=== PATIENT | female | born 1990 | race Caucasian/White ===

== ENCOUNTER 2017-09-07 19:00 | Inpatient (IN) | payer OTHER, SELFPAY ==
[2017-09-07 19:24] VITALS: BMI 26.4
[2017-09-07] MEDS: Lactated Ringers 1,000 ML 50 ML IV (19:35)
[2017-09-07 20:02] LABS: Hematocrit 36.4 % (37-47); Hemoglobin 12.3 g/dl (12.0-15.0); Mean Corp Hgb Conc 33.8 g/gl (32-36); Mean Corpuscular Hgb 31.5 pg (27.0-32.0); Mean Corpuscular Volume 93.1 fL (81-99); Mean Platelet Vol. 10.5 fl (6.2-12.0); Platelet Count 228 K/mm3 (150-450); RBC Distribution Width SD 47.6 fl (35.1-43.9); Red Blood Count 3.91 M/mm3 (4.2-5.4); Scan Indicated on CBC? Y/N NO; White Blood Count 9.7 K/mm3 (4.4-11.0)
[2017-09-07] MEDS: 0.9% Normal Saline 100 ML IV.SOLN. INTRA-UTER (20:45)
--- NOTE | 2017-09-07 21:17 | PCM.HP.OB ---
- Problem List (1) Post-dates Status: Acute (2) Encounter for induction of labor Status: Acute (3) Abnormal finding on screen Status: Acute (4) Family history of congenital heart defect Status: Acute History Date of Admission: 09/07/17 Final ANGEL: 09/01/17 Final ANGEL Source: US <20 weeks Gestational age: 40 Weeks and 6 Days History of this : This is a 26 year-old, G [1], P [0], at 40 weeks 5 days gestational age by 1st trimester U/S. Presented to L&D for post dates induction of labor for cervical ripening. OB HX: Family history of congenital heart disease, positive sequential screen in with U/S adjusted risk to 1 in 300 for DS, anemia in on iron supplementation. Allergies No Known Allergies Allergy (Verified 09/07/17 19:25) Home Medications: Home Medications Ferrous Sulfate [Iron] 1 tab PO DAILY 09/07/17 Pnv 11-Iron Fum-Folic Acid-Om3 [Virt-Kirk Dha Softgel] 1 tab PO DAILY 09/07/17 Smoking Status: Never smoker Alcohol: None Number of Fetus(es): 1 Heart Tracin, moderate variability, accels, no decels Category 1 TOCO Analysis: Q3-5 minutes, moderate to palpation History Past Pregnancies: Past Pregnancies Delivery Date Name GA/Weeks Outcome Route Weight Infant Gender Labor Length Anesthesia Delivery Location Provider FOB Labs: Rubella immune O positive HBsAG negative HIV negative RPR negative GC/CT negative Urine tox negative GBS negative Sequential screen positive for DS. U/S adjusted risk for DS 1 in 300. Declined further testing. Review of Systems Constitutional: Denies: Chills, Fever, Weight Change HEENT: Denies: Head Aches, Sinus Congestion, Sinus Drainage Cardiovascular: Denies: Chest Pain, Palpitations Respiratory: Denies: Cough, Shortness of breath at rest, Sputum production Gastrointestinal: Denies: Abdominal Pain, Nausea, Vomiting Genitourinary: Denies: Dysuria Musculoskeletal: Denies: Joint Pain, Joint Tenderness Skin: Denies: Rash, Wounds Neurological: Denies: Numbness, Tingling, Focal weakness Psychiatric: Denies: Anxiety, Depression, Homicidal Ideations, Suicidal Ideations Physical Exam General: Alert, Oriented x3, No apparent distress HEENT: Atraumatic, Normocephalic Cardiovascular: Regular rate, Regular Rhythm, No murmurs Lungs: Clear to auscultation, No rhonchi, No wheeze Abdomen: Bowel Sounds Present, Gravid Extremities:: No edema Neurological: Deep Tendon Reflexes 2+/4 and Symmetrical Estimated gestational size: Appropriate for gestational size Presentation: Cephalic Cervix Dilation (cm): 2 - Ramos catheter placed without complications Station: -1 Effacement (%): 60 Assessment/Plan All Active Problems Post-dates (Acute) Encounter for induction of labor (Acute) Abnormal finding on screen (Acute) Family history of congenital heart defect (Acute) A:This is a 26 year-old, G [1], P [0], at 40 weeks 5days gestational age post dates induction of labor GBS negative Category 1 FHT P: 1) Admit for induction of labor 2) IV saline lock 3) Ramos bulb for cervical ripening. Will start pitocin when out. 4) Planning epidural for pain management. 5) notified of patient in labor, collaborating physician. 6) Declines LARC
[2017-09-07] MEDS: Oxytocin 30 units/NS 500 ml 30 UNITS/500 ML IV.SOLN IV (22:05)
[2017-09-08] VITALS (11 sets, daily range): BP systolic 85–119; BP diastolic 55–80; PULSE 85–133; RESP 12–16; TEMP 36.6–37.8
[2017-09-08] MEDS: Lactated Ringers 1,000 ML 50 ML IV
[2017-09-08] MEDS: fentaNYL-bupivacaine (epidural) 100 ML BAG EPIDURAL (00:50)
--- NOTE | 2017-09-08 07:58 | PCM.PN.OB ---
Patient Problems: Active and Suspected Problems Post-dates (Acute) Encounter for induction of labor (Acute) Abnormal finding on screen (Acute) Family history of congenital heart defect (Acute) Subjective: Called in for patient complete dilation with bulging bag. Patient pushing with good effort. Family at bedside. Objective: FHT 125, minimal variability, accels, early and variable decels, Category 2 FHT TOCO: every 2-3 minutes, lasting 70-90 seconds, strong, Pitocin at 4 mu's Cervix: complete +2 station - Physical Exam Weight: 179 lb Body Mass Index (BMI) 26.4 Intake and Output for Last 24 Hours 09/06/17 09/07/17 09/08/17 23:59 23:59 23:59 Intake Total 2576 / 2576 Output Total 550 / 550 Balance 2025 / 2025 Laboratory Tests Past 24 Hrs 09/07/17 09/07/17 19:35 19:35 WBC 9.7 RBC 3.91 L Hgb 12.3 Hct 36.4 L MCV 93.1 MCH 31.5 MCHC 33.8 RDW 14.0 RDW Differential 47.6 H Plt Count 228 MPV 10.5 Blood Type O POSITIVE Antibody Screen NEGATIVE Medical Necessity - Tobacco Use Smoking Status: Never smoker Assessment/Plan All Active Problems Post-dates (Acute) Encounter for induction of labor (Acute) Abnormal finding on screen (Acute) Family history of congenital heart defect (Acute) A: Active labor, second stage Category 2 FHT P: 1) Continue with active management, anticipate . 2) Epidural turned off at this time 3) notified of patient status, complete, and pushing.
[2017-09-08] MEDS: Lactated Ringers 1,000 ML 15 ML IV (09:00)
[2017-09-08] MEDS: Oxytocin 30 units/NS 500 ml 30 UNITS/500 ML IV.SOLN 334 UNITS IV (09:00)
[2017-09-08] MEDS: Oxytocin 30 units/NS 500 ml 30 UNITS/500 ML IV.SOLN 167 UNITS IV (09:30)
--- NOTE | 2017-09-08 09:45 | PCM.OB.VAG ---
- Problem List (1) Post-dates Status: Acute (2) Encounter for induction of labor Status: Acute (3) Abnormal finding on screen Status: Acute (4) Family history of congenital heart defect Status: Acute (5) Vaginal delivery Status: Acute Vaginal Delivery Maternal Presentation: Active Labor, Medically Indicated Induction Method of Induction: Pitocin, Ramos Bulb Amniotic Membrane Rupture Type: Artificial - Light stained meconium fluid Amniotic Fluid Description: Lightly stained meconium Final ANGEL: 09/01/17 Gestational age: 41 Weeks and 0 Days Date of Procedure: 09/08/17 Pre-Operative Diagnosis: Induction of labor, postdates Post-Operative Diagnosis: Vaginal delivery Surgery/ Procedure Performed: Spontaneous Vaginal Delivery Type of Anesthesia: Epidural Description of Procedure: Progressed to complete and slight pressure. of viable female over 2nd degree perineal laceration. Apgars 9,9 with weight pending. delivered and placed on maternal abdomen, strong cry, mouth and nares suctioned for secretions, terminal meconium. Uncomplicated delivery. Pitocin started for active 3rd stage management. Cord clamped and cut by FOB after pulsations ceased. Placenta delivered with maternal effort, intact, 3 vessel cord. Perineum inspected and revealed second degree perineal laceration repaired with 3.0 vicryl under epidural analgesia. Repaired without difficulty. Rectal exam completed and external anal sphincter and mucosa intact. EBL 450ml due to laceration and clots. Extracted clots and hemostasis achieved. Mom and baby stable, family bonding well. Planning to breastfeed. notified. Presentation: Vertex Placental Delivery Description: Spontaneous Placenta Disposition: [facility] Cord Vessel Description: 3 Vessels Cord Entanglement: None Estimated Blood Loss: 450 A gender: Female (1 minute): 9 (5 minute): 9 Episiotomy Description: None Laceration: Perineal Extension/lac, 2nd degree Medications given after delivery: IV Pitocin
[2017-09-08 15:21] LABS: Bedside Glucose 141 mg/dL (70-110)
[2017-09-08] MEDS: Ferrous Sulfate 325 MG Tablet PO (16:09)
[2017-09-08] MEDS: Ibuprofen 600 MG Tablet PO (16:09)
--- NOTE | 2017-09-08 16:53 | PCM.PN.BLA ---
Progress Note pt seen at bedside and evaluated for syncopal episodes while trying to ambulate. pt reports no CP, SOB, dizziness or palpitations. Per RN Lochia is mild. pt has been unable to urinate since delivery. Exam: Gen: female in NAD Abd; soft, non tender. Fundus firm at level of umbilicus Vaginal: Mild lochia. exam performed- no signs of hematoma present. tissue is soft, sutures are intact. Orthostatics done while i was present- + orthostatics on sitting to standing positions. pt reports had ringing in ears and started to feel faint - we sat her back in bed and symptoms were dissipating. a/p: 26yo s/p of LGA (11lb 6oz) with second degree vaginal laceration 1) CBC done- hg 12 down to 9. will repeat at 9pm 2) T&C x 2 u PRBC - done 3) repeat orthostatics 4) bedside commode and if unable to void will replace catheter until morning 5) consider transfusion of 1-2 u PRBC after next CBC. pt counseled and agrees for transfusion if indicated.
[2017-09-08 17:09] LABS: Absolute Lymphocyte Count 1.23 X10^3/ul (0.83-4.51); Absolute Neutrophil Count 15.2 X10^3/uL (2.0-7.7); Basophil# 0.01 X10^3/uL; Basophil% 0.1 % (0-1); Hematocrit 27.1 % (37-47); Hemoglobin 9.1 g/dl (12.0-15.0); Lymphocyte # 1.23 X10^3/ul (4.0); Lymphocyte % 6.8 % (19-41); Mean Corp Hgb Conc 33.6 g/gl (32-36); Mean Corpuscular Hgb 31.4 pg (27.0-32.0); Mean Corpuscular Volume 93.4 fL (81-99); Monocyte# 1.65 X10^3/uL; Monocyte% 9.1 % (0-10); Neutrophil # 15.23 X10^3/uL (2.7-7.7); Neutrophil % 83.7 % (47-70); POSITIVE COUNT NO; POSITIVE DIFFERENTIAL YES; POSITIVE MORPHOLOGY NO; Platelet Count 201 K/mm3 (150-450); RBC Distribution Width CV 13.9 % (11.6-14.6); RBC Distribution Width SD 47.5 fl (35.1-43.9); White Blood Count 18.2 K/mm3 (4.4-11.0)
[2017-09-08 17:10] LABS: Differential Indicated SCAN CRITERIA MET
--- NOTE | 2017-09-08 17:41 | NURSING ---
1445: Attempted to stand pt at bedside, with nurse assist x 2, up to ambulate to restroom after delivery and pt passed out. Eased pt down onto bed. Pt regained consciousness after 5 seconds. Pt verbalized understanding to stay in bed, instructed pt to call for nurse to ambulate. Straight cath pt at 1400 for 750 cc clear yellow urine. FF and below. small vb. VS stable. Pt ate chicken strips and macoroni and cheese. BS 141. Called . Aware of above info. Orders received to draw CBC.
[2017-09-08] MEDS: Senna/Docusate Sodium 1 Tablet PO (19:05)
[2017-09-08] MEDS: 0.9% Saline Lock 10 ML Syringe IV (19:05)
[2017-09-08 21:49] LABS: Hematocrit 23.7 % (37-47); Hemoglobin 8.1 g/dl (12.0-15.0); Mean Corp Hgb Conc 34.2 g/gl (32-36); Mean Corpuscular Hgb 32.4 pg (27.0-32.0); Mean Corpuscular Volume 94.8 fL (81-99); Mean Platelet Vol. 10.2 fl (6.2-12.0); Platelet Count 195 K/mm3 (150-450); RBC Distribution Width CV 13.4 % (11.6-14.6); RBC Distribution Width SD 44.3 fl (35.1-43.9)
[2017-09-08 21:50] LABS: Scan Indicated on CBC? Y/N NO
[2017-09-09] VITALS (7 sets, daily range): BP systolic 106–126; BP diastolic 61–80; PULSE 74–99; RESP 16–18; TEMP 36.7–37.7; O2SAT 98–99
[2017-09-09] MEDS: 0.9% Saline Lock 10 ML Syringe IV ×3 (01:11→18:13)
[2017-09-09] MEDS: Acetaminophen 500 MG Tablet 1000 MG PO (03:41)
[2017-09-09 06:33] LABS: Hematocrit 29.4 % (37-47); Hemoglobin 9.9 g/dl (12.0-15.0); Mean Corp Hgb Conc 33.7 g/gl (32-36); Mean Corpuscular Hgb 30.6 pg (27.0-32.0); Mean Corpuscular Volume 90.7 fL (81-99); Mean Platelet Vol. 10.1 fl (6.2-12.0); Platelet Count 170 K/mm3 (150-450); RBC Distribution Width CV 14.9 % (11.6-14.6); RBC Distribution Width SD 49.4 fl (35.1-43.9); Red Blood Count 3.24 M/mm3 (4.2-5.4)
[2017-09-09 06:37] LABS: Scan Indicated on CBC? Y/N NO
[2017-09-09] MEDS: Ibuprofen 600 MG Tablet PO ×3 (08:49→23:31)
--- NOTE | 2017-09-09 11:17 | PCM.PN.OB ---
Patient Problems: Active and Suspected Problems Post-dates (Acute) Encounter for induction of labor (Acute) Abnormal finding on screen (Acute) Family history of congenital heart defect (Acute) Vaginal delivery (Acute) Subjective: Doing well per patient and nursing staff. Ambulating now and voiding without difficulty. Feeling better after blood transfusion. Passing flatus, no BM. Pain controlled by Motrin. Denies MIDDLETON, visual changes, chest pain, shortness of breath, leg pain, increased vaginal bleeding or clots. Planning D/C home tomorrow. , assistance provided by . - Physical Exam General: Alert, Oriented x3, Cooperative HEENT: Atraumatic, Normocephalic Lungs: Clear to auscultation, Normal air movement, No rhonchi, No wheeze Cardiovascular: Regular rate, Regular Rhythm, No murmurs Abdomen: Bowel Sounds Present, Soft, - - Fundus firm 2 below U Extremities: No edema, - - Lulu's negative. Psych/Mental Status: Normal Affect, Appropriate Vital Signs Temp Pulse Resp BP Pulse Ox 98.4 F 80 18 110/70 99 09/09/17 07:47 09/09/17 07:47 09/09/17 07:47 09/09/17 07:47 09/09/17 07:47 Oxygen Delivery Method Room Air Weight: 179 lb Body Mass Index (BMI) 26.4 Intake and Output for Last 24 Hours 09/07/17 09/08/17 09/09/17 23:59 23:59 23:59 Intake Total 5109 / 5109 618 / 618 Output Total 1999 / 1999 650 / 650 Balance 3109 / 3109 -32 / -32 Laboratory Tests Past 24 Hrs 09/07/17 09/08/17 09/08/17 19:35 15:30 21:35 WBC 18.2 H 17.0 H RBC 2.90 L 2.50 L Hgb 9.1 L 8.1 L Hct 27.1 L 23.7 L MCV 93.4 94.8 MCH 31.4 32.4 H MCHC 33.6 34.2 RDW 13.9 13.4 RDW Differential 47.5 H 44.3 H Plt Count 201 195 MPV 10.0 10.2 Immature Gran % (Auto) 0.300 Neut % (Auto) 83.7 H Lymph % (Auto) 6.8 L [place] % (Auto) 9.1 Eos % (Auto) 0.0 Baso % (Auto) 0.1 Absolute Neuts (auto) 15.2 H Absolute Lymphs (auto) 1.23 Total Counted Not Reportable Differential Comment Diff Path Review May foll Crossmatch See Detail 09/09/17 06:15 WBC 16.0 H RBC 3.24 L Hgb 9.9 L Hct 29.4 L MCV 90.7 MCH 30.6 MCHC 33.7 RDW 14.9 H RDW Differential 49.4 H Plt Count 170 MPV 10.1 Immature Gran % (Auto) Neut % (Auto) Lymph % (Auto) T[place] % (Auto) Eos % (Auto) Baso % (Auto) Absolute Neuts (auto) Absolute Lymphs (auto) Total Counted Differential Comment Diff Path Review Crossmatch POC Glucose 09/08/17 15:04 POC Glucose 141 H Medical Necessity - Tobacco Use Smoking Status: Never smoker Assessment/Plan All Active Problems Post-dates (Acute) Encounter for induction of labor (Acute) Abnormal finding on screen (Acute) Family history of congenital heart defect (Acute) Vaginal delivery (Acute) A: PPD #1 for viable female Macrosomic Blood loss anemia P: 1) Routine care. 2) Hgb stable, increased. Ferrous Sulfate 325mg PO once daily. 3) Planning D/C home tomorrow.
--- NOTE | 2017-09-09 11:23 | PN.OBGYN_ITS ---
Patient Problems: Active and Suspected Problems Post-dates (Acute) Encounter for induction of labor (Acute) Abnormal finding on screen (Acute) Family history of congenital heart defect (Acute) Vaginal delivery (Acute) Subjective: Doing well per patient and nursing staff. Ambulating now and voiding without difficulty. Feeling better after blood transfusion. Passing flatus, no BM. Pain controlled by Motrin. Denies MIDDLETON, visual changes, chest pain, shortness of breath , leg pain, increased vaginal bleeding or clots. Planning D/C home tomorrow. , assistance provided by . - Physical Exam General: Alert, Oriented x3, Cooperative HEENT: Atraumatic, Normocephalic Lungs: Clear to auscultation, Normal air movement, No rhonchi, No wheeze Cardiovascular: Regular rate, Regular Rhythm, No murmurs Abdomen: Bowel Sounds Present, Soft, - - Fundus firm 2 below U Extremities: No edema, - - Lulu's negative. Psych/Mental Status: Normal Affect, Appropriate Vital Signs Temp Pulse Resp BP Pulse Ox 98.4 F 80 18 110/70 99 09/09/17 07:47 09/09/17 07:47 09/09/17 07:47 09/09/17 07:47 09/09/17 07:47 Oxygen Delivery Method Room Air Weight: 179 lb Body Mass Index (BMI) 26.4 Intake and Output for Last 24 Hours 09/07/17 09/08/17 09/09/17 23:59 23:59 23:59 Intake Total 5109 / 5109 618 / 618 Output Total 1999 / 1999 650 / 650 Balance 3109 / 3109 -32 / -32 Laboratory Tests Past 24 Hrs 09/07/17 09/08/17 09/08/17 19:35 15:30 21:35 WBC 18.2 H 17.0 H RBC 2.90 L 2.50 L Hgb 9.1 L 8.1 L Hct 27.1 L 23.7 L MCV 93.4 94.8 MCH 31.4 32.4 H MCHC 33.6 34.2 RDW 13.9 13.4 RDW Differential 47.5 H 44.3 H Plt Count 201 195 MPV 10.0 10.2 Immature Gran % (Auto) 0.300 Neut % (Auto) 83.7 H Lymph % (Auto) 6.8 L Peach % (Auto) 9.1 Eos % (Auto) 0.0 Baso % (Auto) 0.1 Absolute Neuts (auto) 15.2 H Absolute Lymphs (auto) 1.23 Total Counted Not Reportable Differential Comment Diff Path Review May foll Crossmatch See Detail 09/09/17 06:15 WBC 16.0 H RBC 3.24 L Hgb 9.9 L Hct 29.4 L MCV 90.7 MCH 30.6 MCHC 33.7 RDW 14.9 H RDW Differential 49.4 H Plt Count 170 MPV 10.1 Immature Gran % (Auto) Neut % (Auto) Lymph % (Auto) Peach % (Auto) Eos % (Auto) Baso % (Auto) Absolute Neuts (auto) Absolute Lymphs (auto) Total Counted Differential Comment Diff Path Review Crossmatch POC Glucose 09/08/17 15:04 POC Glucose 141 H Medical Necessity - Tobacco Use Smoking Status: Never smoker Assessment/Plan All Active Problems Post-dates (Acute) Encounter for induction of labor (Acute) Abnormal finding on screen (Acute) Family history of congenital heart defect (Acute) Vaginal delivery (Acute) A: PPD #1 for viable female infant Macrosomic infant Blood loss anemia P: 1) Routine care. 2) Hgb stable, increased. Ferrous Sulfate 325mg PO once daily. 3) Planning D/C home tomorrow.
[2017-09-09] MEDS: Ferrous Sulfate 325 MG Tablet PO (14:22)
[2017-09-09] MEDS: Prenatal Vits Tablet 1 TABLET PO (14:22)
[2017-09-09 15:49] LABS: Pathologist Review Reviewed
[2017-09-09] MEDS: Senna/Docusate Sodium 1 Tablet PO (23:32)
[2017-09-10 01:25] VITALS: BP 115/68; PULSE 70; RESP 17; TEMP 36.3
--- NOTE | 2017-09-10 06:54 | PCM.DCVAG ---
Discharge Diet: No Restrictions Discharge Activity: Return to Normal Activity, May not drive while taking narcotic pain medications., May Shower May resume sexual activity in: 4-6 weeks Additional Activity Instructions:: Nothing in the vagina for 4-6 weeks. You may return to work/school in 6 weeks. Call your doctor if your incision/area has: Continuous Slow Oozing, Sudden Increased Bleeding, Increased Pain/ Swelling, Increased Redness, Foul Smelling Discharge Call your doctor if you observe: Fever of 101 or Higher, Inability to urinate, Inability to have a bowel movement, Using more than one pad per hour, Dizziness, Fainting spells Additional Instructions: If you experience any of the following, contact your healthcare provider. Bleeding that soaks a pad every hour for 2 hours Fever 100.4 or higher Unrelieved incision or abdominal pain Swelling, redness, discharge or bleeding from your incision or episiotomy site Your incision begins to separate Problems urinating (including inability to urinate or burning while urinating). Visual changes Severe headache Flu-like symptoms Pain or redness in one of both of your breasts Pain, warmth, tenderness or swelling in your legs, especially the calf area Frequent nausea and vomiting Symptoms of depression or anxiety If you experience any of the following, call 911 or go to the nearest Emergency Room. Chest pain Problems breathing Seizure activity Partial or complete paralysis of a body part, slurred speech, weakness or drooping of the face, or a sudden inability to walk or hold your balance Allergies/Adverse Reactions: Allergies No Known Allergies Allergy (Verified 09/07/17 19:25) Medications to take at Discharge Ferrous Sulfate [Iron] 1 tab PO DAILY 09/07/17 Pnv 11-Iron Fum-Folic Acid-Om3 [Virt-Kirk Dha Softgel] 1 tab PO DAILY 09/07/17 Please Follow Up With: Holly Arana CNM When: Call to make an appointment with your doctor in 6 weeks. If you had elevated Blood Pressure or 4th degree laceration you will need to be seen in 2 weeks. Primary Care Physician: Care Physician,No Primary [Primary Care Provider] - Test Results: Test results from this visit will be discussed in further detail at your follow-up appointment, if applicable. Proposed Discharge Date: 09/10/17
--- NOTE | 2017-09-10 06:59 | DCINST_ITS ---
Discharge Diet: No Restrictions Discharge Activity: Return to Normal Activity, May not drive while taking narcotic pain medications., May Shower May resume sexual activity in: 4-6 weeks Additional Activity Instructions:: Nothing in the vagina for 4-6 weeks. You may return to work/school in 6 weeks. Call your doctor if your incision/area has: Continuous Slow Oozing, Sudden Increased Bleeding, Increased Pain/ Swelling, Increased Redness, Foul Smelling Discharge Call your doctor if you observe: Fever of 101 or Higher, Inability to urinate, Inability to have a bowel movement, Using more than one pad per hour, Dizziness , Fainting spells Additional Instructions: If you experience any of the following, contact your healthcare provider. * Bleeding that soaks a pad every hour for 2 hours * Fever 100.4 or higher * Unrelieved incision or abdominal pain * Swelling, redness, discharge or bleeding from your incision or episiotomy site * Your incision begins to separate * Problems urinating (including inability to urinate or burning while urinating) . * Visual changes * Severe headache * Flu-like symptoms * Pain or redness in one of both of your breasts * Pain, warmth, tenderness or swelling in your legs, especially the calf area * Frequent nausea and vomiting * Symptoms of depression or anxiety If you experience any of the following, call 911 or go to the nearest Emergency Room. * Chest pain * Problems breathing * Seizure activity * Partial or complete paralysis of a body part, slurred speech, weakness or drooping of the face, or a sudden inability to walk or hold your balance Allergies/Adverse Reactions: Allergies No Known Allergies Allergy (Verified 09/07/17 19:25) Medications to take at Discharge Ferrous Sulfate [Iron] 1 tab PO DAILY 09/07/17 Pnv 11-Iron Fum-Folic Acid-Om3 [Virt-Kirk Dha Softgel] 1 tab PO DAILY 09/07/17 Please Follow Up With: Holly Arana CNM When: Call to make an appointment with your doctor in 6 weeks. If you had elevated Blood Pressure or 4th degree laceration you will need to be seen in 2 weeks. Primary Care Physician: Care Physician,No Primary [Primary Care Provider] - Test Results: Test results from this visit will be discussed in further detail at your follow- up appointment, if applicable. Proposed Discharge Date: 09/10/17
--- NOTE | 2017-09-10 07:33 | PCM.PN.OB ---
Patient Problems: Active and Suspected Problems Post-dates (Acute) Encounter for induction of labor (Acute) Abnormal finding on screen (Acute) Family history of congenital heart defect (Acute) Vaginal delivery (Acute) Subjective: Patient laying bed, reports that her dizziness has decreased. Patient denies further issues with ambulation at this time. Reports no issues with urination either. Denies MIDDLETON or scotoma. Patient desires discharge to home today. Objective: Nipples with few cracks, blisters. Breasts non-erythematous. Abdomen NT x 4 quadrants, FF midline 2FB below umbilicus Scant rubra lochia, perineum well approximated Negative calf tenderness to palpation, no edema in LE - Physical Exam General: Alert, Oriented x3, Cooperative HEENT: Atraumatic, Normocephalic Neck: Supple Lungs: Normal air movement Cardiovascular: Regular rate, No murmurs Abdomen: Soft, Non Tender Extremities: No edema, Capillary Refill Less than 3 Seconds Skin: No rashes, No breakdown Musculoskeletal: No Tenderness to Palpation of Joints or Extremities Neurological: Cranial nerves II-XII grossly intact Psych/Mental Status: Normal Affect, Appropriate Vital Signs Temp Pulse Resp BP Pulse Ox 97.4 F L 70 17 115/68 99 09/10/17 01:25 09/10/17 01:25 09/10/17 01:25 09/10/17 01:25 09/09/17 07:47 Oxygen Delivery Method Room Air Weight: 179 lb Body Mass Index (BMI) 26.4 Intake and Output for Last 24 Hours 09/08/17 09/09/17 09/10/17 23:59 23:59 23:59 Intake Total 5109 / 5109 618 / 618 Output Total 1999 650 / 650 Balance 3109 / 3109 -32 / -32 Laboratory Tests Past 24 Hrs 09/08/17 15:30 Diff Path Review Reviewed Medical Necessity - Tobacco Use Smoking Status: Never smoker Assessment/Plan All Active Problems Post-dates (Acute) Encounter for induction of labor (Acute) Abnormal finding on screen (Acute) Family history of congenital heart defect (Acute) Vaginal delivery (Acute) 26 y/o s/p for LGA baby, PP Course complicated by Anemia - received 2PRBCS unites, PPD #2 P: 1) Discharge patient to home pending discharge 2) Anticipatory health care teaching reviewed - encourage continued BF 3) RTC in 6 weeks for PP visit at [facility] Portia OLSEN
[2017-09-10 08:35] VITALS: BP 117/72; PULSE 87; RESP 18; TEMP 36.7; O2SAT 97
[2017-09-10] MEDS: Senna/Docusate Sodium 1 Tablet PO (09:48)
[2017-09-10] MEDS: Ferrous Sulfate 325 MG Tablet PO (09:48)
== END 2017-09-10 12:50 | disposition home or self-care (01) | DRG 775 ==
PROVIDERS: Advanced Practice Midwife; Admitting Provider Obstetrics & Gynecology; Visit Provider Obstetrics & Gynecology
DX: O48.0 Post-term pregnancy (principal); D62 Acute posthemorrhagic anemia; O36.63X0 Maternal care for excessive fetal growth, third trimester, not applicable or unspecified; O70.1 Second degree perineal laceration during delivery; O76 Abnormality in fetal heart rate and rhythm complicating labor and delivery; O77.0 Labor and delivery complicated by meconium in amniotic fluid; Z82.49 Family history of ischemic heart disease and other diseases of the circulatory system; Z3A.40 40 weeks gestation of pregnancy; Z37.0 Single live birth
CPT/HCPCS: 59025; 59050; 82962; 85025; 85027; 86850; 86900; 86920; 99218; J7030; J7050; J7120; P9016; A4216; G0378

== ENCOUNTER 2017-09-14 09:45 | Outpatient (CLI) | payer OTHER, SELFPAY | END 2017-09-14 10:30 | disposition home or self-care (01) | LOC: WPOUT 09:49 → WP 09:50 | PROVIDERS: Visit Provider Advanced Practice Midwife | DX: Z39.1 Encounter for care and examination of lactating mother (principal) | CPT/HCPCS: 96152 ==

== ENCOUNTER 2021-09-20 10:10 | Outpatient (CLI) | payer OTHER, SELFPAY ==
[2021-09-20 10:32] VITALS: BP 118/67; PULSE 90
[2021-09-20 10:37] VITALS: BMI 24.7
[2021-09-20 14:16] VITALS: BP 115/67; PULSE 93; TEMP 37.1
[2021-09-20 14:18] VITALS: PULSE 105; O2SAT 99
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
== END 2021-09-20 14:25 | disposition home or self-care (01) ==
LOC: WPOUT 10:14 → WP 10:14
PROVIDERS: Visit Provider Advanced Practice Midwife
DX: Z04.1 Encounter for examination and observation following transport accident (principal); Z3A.34 34 weeks gestation of pregnancy
CPT/HCPCS: 59025; 59050; 99218; G0378

== ENCOUNTER 2021-10-08 23:06 | Emergency (ER) | payer OTHER, SELFPAY ==
[2021-10-08 23:06] VITALS: BP 106/66; PULSE 119; RESP 16; TEMP 36.8; O2SAT 98; BMI 25.1
[2021-10-08 23:17] VITALS: O2SAT 97
--- NOTE | 2021-10-08 23:31 | EKG12_ITS ---
Test Reason : Blood Pressure : / mmHG Vent. Rate : 116 BPM Atrial Rate : 116 BPM P-R Int : 128 ms QRS Dur : 084 ms QT Int : 322 ms P-R-T Axes : 046 064 -36 degrees QTc Int : [address] & T wave abnormality, consider inferolateral ischemia Abnormal ECG Confirmed by KATIE HEARD, ROBERT ([id number]), associate editor ROMAN MONTELONGO ([id number]) on 10/11/2021 2:02:17 PM Referred By: Confirmed By:ROBERT WILSON MD
--- NOTE | 2021-10-08 23:45 | ED.VIS.DYS ---
HPI History of Present Illness Chief Complaint: Shortness of Breath Informant: patient Narrative Narrative: 31-year-old female at 37 weeks gestation tested positive for COVID-19 today. She states that this evening her apple watch gave her alert that her heart rate was high at 130. She states that she feels her heart racing faster than normal. She notes that today she woke up with headache sore throat. Her previously tested positive for COVID-19 so PFSH PFSH Home Medications ferrous sulfate 325 mg (65 mg iron) tablet (Iron (ferrous sulfate)) 1 tab PO DAILY anemia 09/07/17 [History Last Taken 09/18/21 22:00] [id number] fum 28 mg iron-folic acid 1 mg-omg3 200 mg capsule (Virt-Kirk DHA) 1 tab PO DAILY 09/07/17 [History Last Taken 09/19/21 18:30] cholecalciferol (vitamin D3) 50 mcg (2,000 unit) capsule (Vitamin D3) 50 mcg PO DAILY supplement 09/20/21 [History Last Taken 09/19/21 18:30] Allergy/AdvReac Type Severity Reaction Status Date / Time No Known Allergies Allergy Verified 10/08/21 23:06 Social History Smoking Status: Never smoker EXAM Physical Exam Const Vital Signs: 10/08/21 23:06 10/08/21 23:17 Temperature 98.3 F Temperature Source Temporal Pulse Rate 119 H Respiratory Rate 16 Respiratory Effort Normal Blood Pressure 106/66 Blood Pressure Mean 79 Pulse Ox 98 Oxygen Delivery Method Room Air Room Air MDM MDM MDM Narrative Medical decision making narrative: Basic blood work was obtained showed a hemoglobin of 10.4 platelet count of 209. CMP glucose 115. Troponin was negative. CTA of the chest is negative for infiltrate or pulmonary embolism. Patient has been around 116 resting heart rate in the bed on the monitor. At this point I think the patient can be discharged home. Would recommend follow-up with her [employer] as needed return if worsening or concerns Lab Data Attestation: I reviewed the patient's lab results. Labs: Laboratory Results - last 24 hr 10/08/21 10/08/21 23:55 23:55 WBC 8.6 RBC 3.48 L Hgb 10.4 L Hct 32.1 L MCV 92.2 MCH 29.9 MCHC 32.4 RDW Std Deviation 61.6 H RDW Coeff of Judy 18.4 H Plt Count 209 MPV 9.6 Neut % (Auto) Not Reportable Absolute Neuts (auto) 7.7 Absolute Lymphs (auto) 0.09 L Total Counted 100 Neutrophils % (Manual) 81 H Band Neutrophils % 9 H Lymphocytes % (Manual) 1 L Monocytes % (Manual) 6 Myelocytes % 3 H Diff Path Review May foll Platelet Estimate ADEQUATE Anisocytosis 2+ Sodium 137 Potassium 3.7 Chloride 107 Carbon Dioxide 24.0 Anion Gap 6 BUN 8 Creatinine 0.55 Estim Creat Clear Calc 156.31 Est GFR (MDRD) Af Amer 166 Est GFR (MDRD) Non-Af 137 BUN/Creatinine Ratio 14.4 Glucose 115 H Calcium 8.4 L Total Bilirubin 0.30 AST 21 ALT 21 Alkaline Phosphatase 111 Troponin I High Sens < 3 L Total Protein 6.5 Albumin 2.7 L Globulin 3.8 Albumin/Globulin Ratio 0.7 L Radiography Diagnostic Testing: Clinical Impression(s) from Imaging Studies Chest CTA 10/09/21 00:25 IMPRESSION: Negative CTA chest. Electronically Signed: Haile Giordano MD at 0:52 EDT , EKG Initial EKG: Attestation: I personally reviewed and interpreted this EKG as follows: Comments: Sinus tachycardia with a ventricular rate of 116 bpm Discharge Plan Triage Chief Complaint: Shortness of Breath ED Provider: Brennan Lynn Dx/Rx/DC Orders Clinical Impression: Third trimester , COVID-19, Sinus tachycardia Instructions: Understanding Tachycardia Prescriptions: No Action ferrous sulfate [Iron (ferrous sulfate)] 325 MG tablet 1 tab PO DAILY Virt-Kirk DHA 1 EACH capsule 1 tab PO DAILY cholecalciferol (vitamin D3) [Vitamin D3] 50 mcg (2,000 unit) Capsule 50 mcg PO DAILY Primary Care Provider: Care Physician,No Primary Referrals: Care Physician,No Primary [Primary Care Provider] - Disposition Disposition: Home, Self Care
[2021-10-09] LABS: Hematocrit 32.1 % (37-47); Hemoglobin 10.4 g/dL (12.0-15.0); Mean Corp Hgb Conc 32.4 g/dL (32-36); Mean Corpuscular Hgb 29.9 pg (27.0-32.0); Mean Corpuscular Volume 92.2 fL (81-99); Mean Platelet Vol. 9.6 fl (6.2-12.0); POSITIVE COUNT YES; POSITIVE DIFFERENTIAL YES; POSITIVE MORPHOLOGY YES; Platelet Count 209 K/mm3 (150-450); RBC Distribution Width CV 18.4 % (11.6-14.6); RBC Distribution Width SD 61.6 fl (35.1-43.9); Red Blood Count 3.48 M/mm3 (4.2-5.4); White Blood Count 8.6 K/mm3 (4.4-11.0)
[2021-10-09 00:03] LABS: Differential Indicated MANUAL DIFF
--- NOTE | 2021-10-09 00:25 | CT_ITS ---
EXAM: CT ANGIOGRAPHY CHEST WITHOUT AND WITH INTRAVENOUS CONTRAST CLINICAL INDICATION: Pulmonary embolism -- COVID + 37 wks TECHNIQUE: Helically acquired angiography images were obtained of the chest without and with intravenous contrast. CTDIvol = ( 7.78 ) mGy, DLP = ( 277.75 ) mGycm This CT exam was performed using one or more of the following dose reduction techniques: automated exposure control, adjustment of the mA and/or kV according to patient size, and/or use of iterative reconstruction technique. This report was created using [employer] report generation technology. MIP reconstructed images were created and reviewed. CONTRAST: IV 100mL [id number] COMPARISON: None. FINDINGS: PULMONARY ARTERIES: Unremarkable. Normal in caliber. No evidence of pulmonary embolism. AORTA: Unremarkable. Normal in caliber. No evidence of dissection. GREAT VESSELS OF AORTIC ARCH: Unremarkable. Normal in caliber. No evidence of dissection. LUNGS AND PLEURAL SPACES: Unremarkable. No mass. No consolidation or edema. No pleural effusion or thickening. No pneumothorax. HEART: Unremarkable. Heart size is normal. No pericardial effusion. No signs of right heart strain, ratio of right ventricle to left ventricle measures less than 1. MEDIASTINUM: Unremarkable. No mediastinal or hilar adenopathy. Esophagus is unremarkable. No hiatal hernia. THYROID: Unremarkable. No thyroid lesions. BONES/JOINTS: Unremarkable. No suspicious lytic or blastic abnormality. CT/CTA Chest W/WO Contrast IMPRESSION: Negative CTA chest. Electronically Signed: Haile Giordano MD at 0:52 EDT ,
[2021-10-09 00:27] LABS: ALB/GLOB Ratio 0.7 RATIO (0.9-2.4); AST(SGOT) 21 U/L (15-37); Alanine Aminotransfer ALT/SGPT 21 U/L (13-56); Albumin, Serum 2.7 g/dL (3.2-5.0); Alkaline Phosphatase 111 U/L (45-117); Anion Gap 6 (5-15); BUN 8 mg/dL (7-18); BUN/Creat Ratio 14.4 RATIO (10-20); Calcium,Total 8.4 mg/dL (8.5-10.1); Chloride 107 mmol/L (98-107); Creatinine, Serum 0.55 mg/dL (0.55-1.02); EST Glomerular Filtration Rate 137 mL/min (>60); Est Glom Filt Rate - Afr Amer 166 mL/min (>60); Estimated Creatinine Clearance 156.31 ml/min; Globulin 3.8 g/dL (2.2-4.2); Glucose 115 mg/dL (74-106); Potassium 3.7 mmol/L (3.5-5.1); Protein, Total 6.5 g/dL (6.4-8.2); Sodium Level 137 mmol/L (136-145); Troponin-I HS < 3 pg/mL (3.0-54.0)
[2021-10-09 00:36] LABS: Anisocytosis 2+
[2021-10-09 00:38] LABS: Absolute Lymphocyte Count 0.09 X10^3/uL (0.83-4.51); Absolute Neutrophil Count 7.7 X10^3/uL (2.0-7.7); Lymphocyte 1 % (19-41); Monocyte 6 % (0-10); Myelocyte 3 % (0-0); Neutrophil-Band 9 % (0-5); Neutrophil-Segmented 81 % (47-70); Total Cells Counted 100 (MANUAL DIFF)
[2021-10-09 00:39] LABS: Platelet Estimate ADEQUATE (ADEQ)
[2021-10-09 01:27] VITALS: BP 105/61; PULSE 127; RESP 18; O2SAT 98
[2021-10-09 12:36] LABS: Pathologist Review Reviewed
== END 2021-10-09 01:29 | disposition home or self-care (01) ==
PROVIDERS: Emergency Provider Emergency Medicine; Visit Provider Emergency Medicine
DX: O98.513 Other viral diseases complicating pregnancy, third trimester (principal); U07.1 COVID-19; O99.891 Other specified diseases and conditions complicating pregnancy; R00.0 Tachycardia, unspecified; Z3A.37 37 weeks gestation of pregnancy
CPT/HCPCS: 71275; 80053; 84484; 85025; 93005; 99284; Q9967; A4216

== ENCOUNTER 2021-10-30 06:58 | Inpatient (IN) | payer OTHER, SELFPAY ==
[2021-10-30] VITALS (44 sets, daily range): BP systolic 86–135; BP diastolic 47–85; PULSE 70–91; RESP 16; TEMP 36.6–37.2; O2SAT 96–99; BMI 25.6
[2021-10-30] MEDS: Lactated Ringers 1,000 ML 50 ML IV (07:30)
[2021-10-30 07:46] LABS: Absolute Lymphocyte Count 1.72 X10^3/uL (0.83-4.51); Absolute Neutrophil Count 8.7 X10^3/uL (2.0-7.7); Basophil# 0.04 X10^3/uL; Basophil% 0.3 % (0-1); Eosinophil# 0.09 X10^3/uL; Eosinophils% 0.8 % (0-5); Hematocrit 35.8 % (37-47); Hemoglobin 11.7 g/dL (12.0-15.0); Lymphocyte # 1.72 X10^3/ul (0.83-4.51); Lymphocyte % 14.4 % (19-41); Mean Corp Hgb Conc 32.7 g/dL (32-36); Mean Corpuscular Hgb 30.2 pg (27.0-32.0); Mean Corpuscular Volume 92.5 fL (81-99); Mean Platelet Vol. 9.9 fl (6.2-12.0); Monocyte# 1.22 X10^3/uL; Monocyte% 10.2 % (0-10); NRBC Flagged by Analyzer 0 % (0-5); Neutrophil # 8.66 X10^3/uL (2.7-7.7); Neutrophil % 72.5 % (47-70); Platelet Count 259 K/mm3 (150-450); RBC Distribution Width CV 16.7 % (11.6-14.6); RBC Distribution Width SD 56.7 fl (35.1-43.9); Red Blood Count 3.87 M/mm3 (4.2-5.4)
--- NOTE | 2021-10-30 07:49 | HP.PCM.OB_ITS ---
HPI - General General Date of Admission: 10/30/21 Date of Service: 10/30/21 Chief Complaint: elective IOL HPI Narrative XIMENA ARCOS, is a 31 F who presents at 40w3d for a scheduled elective IOL. No regular ctx, vb, lof. +FM. PFSH PFSH Home Medications ferrous sulfate 325 mg (65 mg iron) tablet (Iron (ferrous sulfate)) 1 tab PO DAILY anemia 09/07/17 [History Last Taken 09/18/21 22:00] [id number] fum 28 mg iron-folic acid 1 mg-omg3 200 mg capsule (Virt- Kirk DHA) 1 tab PO DAILY 09/07/17 [History Last Taken 09/19/21 18:30] cholecalciferol (vitamin D3) 50 mcg (2,000 unit) capsule (Vitamin D3) 50 mcg PO DAILY supplement 09/20/21 [History Last Taken 09/19/21 18:30] Allergy/AdvReac Type Severity Reaction Status Date / Time No Known Allergies Allergy Verified 10/08/21 23:06 Social History Smoking Status: Never smoker History Elective abortions Hx Para 1 Spontaneous abortions Hx # Term Pregnancies Ectopic pregnancies Hx # Pregnancies Multiple births # of living children NST FHR Rate Baby A FHR Category:: Category I Vital Signs Vital Signs Vital Signs: 10/30/21 07:20 10/30/21 07:20 Pulse Rate 90 Blood Pressure 135/85 H BP Systolic 135 BP Diastolic 85 Weight Weight: 173 lb 8.061 oz Body Mass Index (BMI) 25.6 Physical Exam Const alert and no apparent distress General Appearance: comfortable HEENT normocephalic Resp normal respiratory effort GI GI Narrative: Gravid Labs Labs Labs: Blood Type O POSITIVE Antibody Screen NEGATIVE Hct 35.8 % (37-47) L Hgb 11.7 g/dL (12.0-15.0) L Rhogam given: No Assessment & Plan (1) 40 weeks gestation of : PLAN: - Admit for scheduled elective IOL - Epidural for pain control - GBS negative - EFW expected to be < 4500 g and pelvis adequate - Anticipate vaginal delivery (2) Elective induction of labor planned: (3) History of macrosomia in in prior , currently : PLAN: - Had third trimester growth US (4) History of blood transfusion:
--- NOTE | 2021-10-30 08:02 | PCM.PN.BLA ---
Progress Note Pt feeling mild ctx's q 2-3 min. Cvx 3-4/70/-2, head well applied. AROM performed in usual fashion for return of small amount clear fluid.
[2021-10-30] MEDS: LACTATED RINGERS 500 ML 999 ML IV (10:40)
[2021-10-30] MEDS: fentaNYL-bupivacaine (epidural) 100 ML BAG EPIDURAL (11:22)
[2021-10-30] MEDS: Oxytocin 30 units/NS 500 ml 30 UNITS/500 ML IV.SOLN IV (11:23)
[2021-10-30] MEDS: Oxytocin 30 units/NS 500 ml 30 UNITS/500 ML IV.SOLN 334 UNITS IV (15:46)
--- NOTE | 2021-10-30 17:00 | PCM.OPRPT ---
Problems Associated Problem List Diagnoses (1) History of macrosomia in in prior , currently : (2) Elective induction of labor planned: (3) 40 weeks gestation of : Report of Operation Date of Procedure: 10/30/21 Pre-Operative Diagnosis: 40 week gestation, single IUP, elective induction of labor planned Post-Operative Diagnosis: As above Surgery/Procedure Performed:: Description of Surgical Findings:: VFI in SVEN position. Loose nuchal cord x 2 without compression. Normal appearing placenta with 3 VC. Apgars 8, 9. Surgeon: Princess Johnson Type of Anesthesia: Epidural Special Medications: None Specimen's removed: Placenta Drains: None Estimated Blood Loss (mL): 100 Fluids Replaced: N/A Description of Procedure: Patient was complete and pushing. Head of delivered in VSEN position. A loose nuchal cord x 2 was noted without compression, and reduced. The shoulders and body of the infant were delivered easily without any force or delay. A vigorous VFI was placed on maternal abdomen. The cord was clamped and cut after 60 sec delay. The placenta was removed with fundal massage. The uterus was explored x 1. Fundus firm and bleeding hemostatic. A 1st degree vaginal laceration was repaired with 3-0 Vicryl in usual fashion. A vaginal sweep was performed and sponge counts were correct. Grafts/Implants Used: None Complications None
[2021-10-31] MEDS: Acetaminophen 500 MG Tablet 1000 MG PO ×3 (00:13→12:19)
[2021-10-31 05:05] VITALS: BP 108/65; PULSE 83; RESP 16; TEMP 36.2; O2SAT 98
[2021-10-31 07:42] VITALS: BP 110/68; PULSE 76; RESP 16; TEMP 36.6; O2SAT 99
--- NOTE | 2021-10-31 08:45 | PCM.PN.OB ---
Subjective Subjective Pain well controlled. Average lochia. Objective Data Objective Data Vital Signs: Vital Signs Temp Pulse Resp BP Pulse Ox O2 Del Method 97.9 F 76 16 110/68 99 Room Air 10/31/21 07:42 10/31/21 07:42 10/31/21 07:42 10/31/21 07:42 10/31/21 07:42 10/31/21 07:42 Oxygen Delivery Method Room Air Weight: 78.7 kg Body Mass Index (BMI) 25.6 Intake & Output: Intake and Output for Last 24 Hours 10/29/21 10/30/21 10/31/21 23:59 23:59 23:59 Intake Total 2010.67 / Output Total 1600 / 1600 1000 / 1000 Balance 411.67 / 411.67 -1000 / -1000 Lab / Micro Data Result Diagrams: 10/30/21 07:30 Labs: Laboratory Results - last 24 hr 10/30/21 07:30: Blood Type O POSITIVE, Antibody Screen NEGATIVE Physical Exam Const alert and no apparent distress Narrative: Fundus firm, below umbilicus. Assessment & Plan (1) 40 weeks gestation of : PLAN: PPD#1 doing well. Routine care. nursing and doing well. (2) (spontaneous vaginal delivery):
--- NOTE | 2021-10-31 08:47 | DS.PCM_ITS ---
Providers Date of Admission: 10/30/21 Primary Care Physician: Cydney Primary Care Phys Reason For Visit: VAG DELIVERY Diagnosis Discharge Diagnosis (1) 40 weeks gestation of : Status: Acute Code(s): Z3A.40 - 40 weeks gestation of Plan: PPD#1 doing well. Routine care. nursing and doing well. (2) (spontaneous vaginal delivery): Status: Acute Code(s): O80 - Encounter for full-term uncomplicated delivery Medications at Discharge Home Medications ferrous sulfate 325 mg (65 mg iron) tablet (Iron (ferrous sulfate)) 1 tab PO DAILY anemia 09/07/17 [id number] fum 28 mg iron-folic acid 1 mg-omg3 200 mg capsule (V[facility]- [facility] DHA) 1 tab PO DAILY 09/07/17 cholecalciferol (vitamin D3) 50 mcg (2,000 unit) capsule (Vitamin D3) 50 mcg PO DAILY supplement 09/20/21 Hospital Course Operations None Procedures None Summary of Care Provided Hospital Course: 31-year-old multigravida female admitted at 40 weeks gestation. She had a spontaneous vaginal delivery on 10/30/2021 without complications. By day #1 she was ambulating, urinating tolerating regular diet and ready for discharge. was breast-feeding and doing well. Weight / BMI Weight Weight: 78.7 kg Body Mass Index (BMI) 25.6 ABG / Lab / Microbiology Data Result Diagrams: 10/30/21 07:30 Laboratory: Laboratory Results - last 24 hr 10/30/21 07:30: Blood Type O POSITIVE, Antibody Screen NEGATIVE D/C Instructions May resume sexual activity in: 6 weeks Please Follow Up With: Sylwia Gibbs MD When: Follow up with our office in 1-2 and 6 weeks or as needed. [phone] Meaningful Use Info Meaningful Use Diagnoses (Choose all that apply): None applicable Discharge Plan Admission Admit Date/Time: 10/30/21 06:58 Primary Reason for Your Visit: Vaginal delivery Attending Provider: Princess Johnson Primary Care Provider: Care PhysicianCydney Primary Discharge Orders/Prescriptions Prescriptions: No Action ferrous sulfate [Iron (ferrous sulfate)] 325 MG tablet 1 tab PO DAILY Virt-Kirk DHA 1 EACH capsule 1 tab PO DAILY cholecalciferol (vitamin D3) [Vitamin D3] 50 mcg (2,000 unit) Capsule 50 mcg PO DAILY Referrals / Follow Up: Care Physician,No Primary [Primary Care Provider] - Disposition Disposition (needs filled in before D/C Order can be placed): Home, Self Care
[2021-10-31] MEDS: Ibuprofen 600 MG Tablet PO ×2 (09:57→16:50)
[2021-10-31 12:11] VITALS: BP 113/58; PULSE 81; RESP 16; TEMP 36.6; O2SAT 97
[2021-10-31 16:39] VITALS: BP 112/65; PULSE 81; RESP 16; TEMP 36.4; O2SAT 96
[2021-10-31 16:52] VITALS: BP 112/65; PULSE 78; RESP 16; TEMP 36.3
--- NOTE | 2021-11-07 14:44 | NURSING ---
Follow Up Phone call to pt by this RN. Pt. reports PP bleeding is getting better and that she had follow up with her OB already and things are going good. No signs or symptoms reported. going well. Pt. had no questions or concerns during phone call.
== END 2021-10-31 17:23 | disposition home or self-care (01) | DRG 807 ==
PROVIDERS: Admitting Provider Obstetrics & Gynecology; Referring Provider Obstetrics & Gynecology; Visit Provider Obstetrics & Gynecology
DX: O69.81X0 Labor and delivery complicated by cord around neck, without compression, not applicable or unspecified (principal); Z37.0 Single live birth; O70.0 First degree perineal laceration during delivery; Z3A.40 40 weeks gestation of pregnancy
CPT/HCPCS: 59025; 59050; 85025; 86850; 86900; 86901; 99218; J7120; G0378